=== PATIENT | male | born 1960 | race Caucasian/White ===

== ENCOUNTER 2022-03-08 12:17 | Outpatient (REF) | payer SELFPAY ==
[2022-03-11 04:33] LABS: HBS Num1 0.26 mIU/mL (0-7.99); ~Hepatitis B Surface Antibody NONREACTIVE (Nonreactive)
[2022-03-12 05:17] LABS: Rubeola IgG (Measles) >300.00 AU/mL; Varicella IgG Antibody >4000.00 index
[2022-03-12 16:12] LABS: TS Negative Control Passed; TS Panel A 0; TS Panel B 0; TS Positive Control Passed; TSpotTB Negative (Negative)
== END 2022-03-08 12:18 | disposition home or self-care (01) ==
LOC: HO.LNP 12:17
PROVIDERS: Visit Provider Physician Assistant
DX: Z13.89 Encounter for screening for other disorder (principal)
CPT/HCPCS: 86481; 86706; 86735; 86762; 86765; 86787